=== PATIENT | female | born 1985 | race Two or more races ===

== ENCOUNTER 2024-07-18 00:55 | Inpatient (IN) | payer MEDICAID, OTHER ==
[~2024-07-18] VITALS: Ht 152.4 cm; Wt 81.0 kg
[2024-07-18] VITALS (14 sets, daily range): BP systolic 91–119; BP diastolic 57–72; PULSE 84–96; RESP 16–18; TEMP 97.6–98.6; O2SAT 93–100
--- NOTE | 2024-07-18 01:27 | ED.PDOC ---
History of Present Illness HPI Comments 38-year-old female with PMHx Asthma presents with a chief complaint of fever, headache, body aches, throat pain, cough, shortness of breath anxiety, and ear pain x 3 days. Patient states that she called EMS due to feeling progressively worse over the past x 3 days. Patient reports that her 2 children at home have similar symptoms. Patient mentions that she has attempted to relieve her symptoms with her inhaler, but has not had any relief. Patient was tachycardic per EMS in the 130s. No other symptoms or modifying factors present at this time. Chief Complaint: Shortness of Breath Time Seen by MD: 01:15 Reviewed Notes: Medications, Allergies Allergies: Coded Allergies: NO KNOWN ALLERGIES (Unverified , 07/18/24) Home Meds Active Scripts Oseltamivir Phosphate (Tamiflu) 75 Mg Cap, 1 CAP PO BID, #9 CAP Prov:MJ LINO MD 07/18/24 Information Source: Patient, Emergency Med Personnel Mode of Arrival: EMS Severity: Moderate Timing: Days Duration: Since onset Prehospital treatment: None Vital Signs Vital Signs Date Time Temp Pulse Resp B/P (MAP) Pulse Ox O2 Delivery O2 Flow Rate FiO2 07/18/24 04:50 94 07/18/24 02:25 20 96 Room Air* 0 21 07/18/24 02:22 97.5 136/56 (82) 97.5 Physical Exam General: Awake, alert and oriented. No acute distress. Skin: Skin in warm, dry and intact. Appropriate color for ethnicity. Nailbeds pink with no cyanosis. HEENT: The head is normocephalic and atraumatic. Conjunctivae are clear without exudates or hemorrhage. Sclera is non-icteric. EOM are intact. No signs of nystagmus. Eyelids are normal in appearance without swelling or lesions. Oral mucosa is pink and moist Neck: The neck is supple with normal range of motion. No JVD. Cardiac: Heart rate and rhythm are normal. No murmurs, gallops, or rubs are auscultated. Respiratory: No signs of respiratory distress. Positive wheezes bilaterally. Abdominal: Abdomen is soft, non-tender without distention. Bowel sounds are present and normoactive in all four quadrants. Extremities: Upper and lower extremities are atraumatic in appearance without deformity or edema. Neurological: The patient is awake, alert and oriented to person, place, and time with normal speech. Speech is clear. There is no facial asymmetry. Psychiatric: Appropriate mood and affect. Good judgement and insight. No visual or auditory hallucinations. Review of Systems: As stated in HPI Past Medical History PAST MEDICAL HISTORY: Asthma Surgical History: Denies all surgeries KEEPER HELPER History: Denies all KEEPER HELPER Hx Family History Family History: Reviewed,noncontributory to illness Social History Smoker: Non-Smoker Alcohol: Denies ETOH Use Drugs: Denies Drug Use Lives In: Home Was a procedure done? Was a procedure done?: No EKG EKG : Pulse Rate (adult): 118 [place]: Normal Cardiac Rhythm: ST Block: None Hypertrophy: LAE ST: Normal Comments Borderline repolarization abnormality No STEMI Differential Dx Considerations may include: Differential diagnoses considered includebut arenot limited to acute Bronchitis, Asthma, Pneumothorax, PE, CHF, Pulmonary HTN, Anemia, CO Poisoning, dehydration, viral syndrome, acute coronary syndrome, Pneumonia, ACS, Anxiety, other X-Ray, Labs, Meds, VS Vital Signs Date Time Temp Pulse Resp B/P (MAP) Pulse Ox O2 Delivery O2 Flow Rate FiO2 07/18/24 04:50 94 07/18/24 03:38 118 07/18/24 02:25 20 96 Room Air* 0 21 07/18/24 02:22 97.5 108 20 136/56 (82) 96 97.5 07/18/24 02:16 18 95 Room Air* 0 21 07/18/24 02:16 95 Room Air* 0 21 07/18/24 01:13 118 07/18/24 00:55 98.4 124 18 114/72 (86) 94 Lab Test 07/18/24 02:33 07/18/24 01:55 Range/Units Influenza Type A Antigen Positive Negative Influenza Type B Antigen Negative Negative SARS-CoV-2 Antigen (Rapid) Negative NEGATIVE White Blood Count 4.5 4.4-10.8 10^3/uL Red Blood Count 4.54 4.0-5.20 10^6/uL Hemoglobin 12.9 12.2-16.2 g/dL Hematocrit 38.7 36.0-46.0 % Mean Corpuscular Volume 85.3 80.0-100.0 fL Mean Corpuscular Hemoglobin 28.5 28.0-32.0 pg Mean Corpuscular Hemoglobin Concent 33.5 32.0-36.0 g/dL Red Cell Distribution Width 15.3 H 11.8-14.3 % Platelet Count 243 140-450 10^3/uL Mean Platelet Volume 8.4 6.9-10.8 fL Neutrophils (%) (Auto) 83.7 H 37.0-80.0 % Lymphocytes (%) (Auto) 10.2 10.0-50.0 % Monocytes (%) (Auto) 5.5 0.0-12.0 % Eosinophils (%) (Auto) 0.1 0.0-7.0 % Basophils (%) (Auto) 0.5 0.0-2.0 % Neutrophils # (Auto) 3.8 1.6-8.6 10 ^3/uL Lymphocytes # (Auto) 0.5 0.4-5.4 10 ^3/uL Monocytes # (Auto) 0.2 0-1.3 10 ^3/uL Eosinophils # (Auto) 0 0-0.8 10 ^3/uL Basophils # (Auto) 0 0-0.2 10 ^3/uL Nucleated Red Blood Cells 0.1 % Sodium Level 134 L 136-145 mmol/L Potassium Level 3.4 L 3.5-5.1 mmol/L Chloride Level 99 98-107 mmol/L Carbon Dioxide Level 25 20-31 mmol/L Anion Gap 10 5-15 Blood Urea Nitrogen 7 L 9-23 mg/dL Creatinine 0.52 L 0.550-1.02 mg/dL Glomerular Filtration Rate Calc 123 >90 mL/min BUN/Creatinine Ratio 13.5 10.0-20.0 Serum Glucose 104 74-106 mg/dL Calcium Level 9.3 8.7-10.4 mg/dL Total Bilirubin 0.2 0.2-1.0 mg/dL Aspartate Amino Transferase (AST) 15 13-40 U/L Alanine Aminotransferase (ALT) 18 7-40 U/L Alkaline Phosphatase 77 46-116 U/L Troponin I High Sensitivity < 3 L </=34 ng/L Total Protein 6.5 5.7-8.2 g/dL Albumin 4.1 3.2-4.8 g/dL Lipase 39 12-53 U/L Beta HCG, Quantitative > 587315.0 H 1.5-4.2 mIU/mL Current Medications Medications (Trade) Dose Ordered Sig/Cece Route Start Time Stop Time Status Last Admin Albuterol (Ventolin Medneb) 2.5 mg ONCE ONCE NEB 07/18/24 01:30 07/18/24 01:31 DC 07/18/24 02:05 Ipratropium Beals (Atrovent Medneb) 0.5 mg ONCE ONCE NEB 07/18/24 01:30 07/18/24 01:31 DC 07/18/24 02:05 Dexamethasone Sodium Phosphate (Decadron Injection) 10 mg ONCE ONCE IM 07/18/24 01:30 07/18/24 01:31 DC 07/18/24 02:43 Sodium Chloride 1,000 ml @ 1,000 mls/hr Q1H ONCE IV 07/18/24 01:45 07/18/24 02:44 DC 07/18/24 03:28 Acetaminophen (Tylenol Tablet) 650 mg ONCE ONCE PO 07/18/24 02:45 07/18/24 02:46 DC 07/18/24 02:43 Oseltamivir Phosphate (Tamiflu 75MG Capsule) 75 mg ONCE ONCE PO 07/18/24 04:30 07/18/24 04:31 DC 07/18/24 04:51 Potassium Bicarbonate (Klor-Con/Ef) 50 meq ONCE ONCE PO 07/18/24 05:15 07/18/24 05:16 DC 07/18/24 05:20 Time of 1ST Reevaluation: 01:45 Reevaluation 1ST: Unchanged Patient Education/Counseling: Diagnosis, Treatment, Prognosis Family Education/Counseling: No Family Present Departure 1 Departure Time of Disposition: 05:50 Impression: Primary Impression: Influenza A Additional Impressions: Asthma Disposition: 01 HOME / SELF CARE / HOMELESS Condition: Stable Additional Instructions: ED DISCHARGE INSTRUCTIONS Instructions: Please read all instructions provided in this packet carefully. Although you have been discharged from the Emergency Department, this does not mean that you have a "clean bill of health". []No definitive diagnosis for your symptoms has been made today. It is possible that you are in the process of developing a serious illness. This is why you must return to the ED without fail if any new or worsening symptoms (especially if your symptoms include chest pain, trouble breathing, abdominal pain, fever, headache, confusion, trouble seeing, or trouble walking) It is also very important that you see a primary care doctor within the next 3-5 days to follow up. If you are unable to get an appointment, return to the ED for re-evaluation. Early treatment with antiviral medication for flu If you're and have been diagnosed with flu, we may recommend early treatment with antiviral medication (Tamiflu or Relenza) as soon as you start to feel sick or have been exposed to the flu. This medication may make flu symptoms milder, help you feel better faster, and prevent flu-related complications. Tamiflu and Relenza are safe to use during . Dont ignore these symptoms. Been exposed to the flu in the past 4 days. Flu symptoms, such as fever, cough, sore throat, body aches, headaches, chills, or fatigue. Care for your symptoms These recommendations will help you care for your cold, flu, and some COVID-19 symptoms. A fever is the bodys normal response to an infection. A fever is a temperature of 100.4F or higher. When youre , treat your fever early with acetaminophen (Tylenol) to lower your temperature and ease discomfort. Do Keep your room cool and dress lightly. Get plenty of rest. Drink enough fluids. Don't Don't become dehydrated. Clear, colorless urine (and having to urinate frequently) are signs that you're drinking enough. Don't smoke or vape. Avoid secondhand smoke. If you smoke or vape, try to cut back as it can take longer to recover Medication Take acetaminophen (Tylenol) to lower your temperature and relieve discomfort. Follow dosing instructions listed on the product. Don't take aspirin or ibuprofen (Advil, Motrin) unless advised by your doctor. A runny or stuffy nose can last 2 weeks or more. Yellow or green mucus and sinus pain usually doesnt mean you need antibiotics. Do Rinse sinuses with a saltwater (saline) solution. Buy saline nose drops, sprays, or kits. Breathe moist air from a steamy shower, hot bath, or sink filled with warm water. Apply moist heat (warm washcloth or gel pack) to your face for a few minutes, 3 to 4 times a day. Sip warm broth, decaffeinated tea, or water to relieve congestion. Get plenty of rest. Drink enough fluids. Don't Don't become dehydrated. Clear, colorless urine (and having to urinate frequently) are signs that you're drinking enough. Don't smoke or vape. Avoid secondhand smoke. If you smoke or vape, try to cut back as it can take longer to recover. A cough can last 2 weeks or more. It can get worse at night. Coughing up yellow or green mucus usually doesnt mean you need antibiotics. Do Use cough drops, lozenges, hard candy, or ice chips to soothe irritation and dry, tickling coughs. Breathe steamy air from a warm bath or shower, or use a humidifier (no medication added) to add moisture to the air. Drink warm fluids such as water with lemon or decaffeinated tea. Get plenty of rest. With a sore throat, you may have mild to moderate pain when swallowing and dryness, which usually improves within 3 to 4 days. Do Gargle with warm salt water twice a day. Mix 1 teaspoon of salt in 1 cup of warm water. Suck on throat lozenges, hard candy, or ice chips. Drink warm fluids such as water with lemon or decaffeinated tea. Get plenty of rest. Drink enough fluids. Vomiting is unpleasant and can make you tired. Fortunately, it usually stops within 24 hours and is unlikely to harm your baby. Its especially important to replace lost fluids to prevent dehydration. Do Drink clear liquids like diluted fruit juice, broth, a sports drink, or weak decaffeinated tea an hour after vomiting. Start with a few sips every 20 minutes in the first hour. Eat toast, bananas, and crackers after your vomiting has stopped for several hours and you feel better. Return to a normal diet when youre able to. Get plenty of rest. e-Prescriptions Oseltamivir Phosphate (Tamiflu) 75 Mg Cap 1 CAP PO BID, #9 CAP Prov: MJ LINO MD 07/18/24 Comments 38-year-old female with URI symptoms, sick contacts at home, influenza A positive. She has no respiratory distress, she is not hypoxic. We will treat with Tamiflu as recommended by the ACOG. Discharge pending OB ultrasound. Extensive evaluation was performed in attempt to identify or rule out: (See differential diagnosis section) The following tests were ordered, and results were reviewed by me: (See diagnostic results section) The following test were independently interpreted by me: Chest x-ray-no acute disease, EKG I reviewed and agreed with the following test results read by other providers: Chest x-ray I reviewed the following notes from the pt's past medical encounters: (None available at this time) Additional information was gathered from interviewing the following independent historians: N/A Discussion of management or test interpretation with external physician/other qualified health pulmonary care nurse: N/A Addressed one or more chronic illnesses with severe exacerbation, progression, or side effects of treatment: Asthma, , influenza a Decision regarding hospitalization or escalation of hospital level of care: Risks and benefits of admission for further treatment of patient's condition was considered however due to patient's stable condition patient will be discharged to follow up closely or return to care for worsening of condition or inability to follow up. Critical Care Note Critical Care Time?: No Stability Stability form required: No I personally scribed for MJ LINO MD ([email or web address]) on 07/18/24 at 01:27. Electronically submitted by Eleazar Ohara ([email or web address]). I personally scribed for MJ LINO MD ([email or web address]) on 07/18/24 at 03:38. Electronically submitted by Eleazar Ohara ([email or web address]). MJ LINO MD Jul 18, 2024 01:27
[2024-07-18] MEDS: ALBUTEROL SULF 2.5 MG/0.5ML(0.5%) NEB SOLN NEB ONE (02:05)
[2024-07-18] MEDS: IPRATROPIUM BROM 0.5 MG/2.5ML INH SOL NEB ONE (02:05)
[2024-07-18 02:13] LABS: Basophils # (auto) 0 10 ^3/uL (0-0.2); Basophils % (auto) 0.5 % (0.0-2.0); Eosinophils # (auto) 0 10 ^3/uL (0-0.8); Eosinophils % (auto) 0.1 % (0.0-7.0); Hematocrit 38.7 % (36.0-46.0); Hemoglobin 12.9 g/dL (12.2-16.2); Lymphocytes # (auto) 0.5 10 ^3/uL (0.4-5.4); Lymphocytes % (auto) 10.2 % (10.0-50.0); Mean Corpuscular Hemoglobin 28.5 pg (28.0-32.0); Mean Corpuscular Hgb Conc. 33.5 g/dL (32.0-36.0); Mean Corpuscular Volume 85.3 fL (80.0-100.0); Monocytes # (auto) 0.2 10 ^3/uL (0-1.3); Monocytes % (auto) 5.5 % (0.0-12.0); Neutrophils # (auto) 3.8 10 ^3/uL (1.6-8.6); Neutrophils % (auto) 83.7 % (37.0-80.0); Nucleated Red Blood Cells % 0.1 %; Platelet Count (auto) 243 10^3/uL (140-450); Red Blood Cells 4.54 10^6/uL (4.0-5.20); Red Cell Distribution Width 15.3 % (11.8-14.3); White Blood Cell 4.5 10^3/uL (4.4-10.8)
[2024-07-18 02:34] LABS: Alanine Aminotransferase 18 U/L (7-40); Albumin 4.1 g/dL (3.2-4.8); Alkaline Phosphatase 77 U/L (46-116); Anion Gap 10 (5-15); Aspartate Aminotransferase 15 U/L (13-40); BUN/Creatinine Ratio 13.5 (10.0-20.0); Calcium 9.3 mg/dL (8.7-10.4); Carbon Dioxide 25 mmol/L (20-31); Chloride 99 mmol/L (98-107); Glucose 104 mg/dL (74-106); Lipase 39 U/L (12-53)
[2024-07-18 02:35] LABS: Bilirubin, Total 0.2 mg/dL (0.2-1.0); Total Protein 6.5 g/dL (5.7-8.2)
--- NOTE | 2024-07-18 02:37 | DVH ---
Examination: CXR1 CLINICAL INDICATION: Shortness of breath, cough, fever. COMPARISON: None. TECHNIQUE: Frontal radiograph of the chest was obtained. FINDINGS: Patient is in slight rotation. Lungs are clear and well expanded with no pulmonary infiltrate or pleural effusion. There is no pneumothorax. The cardiomediastinal silhouette is within normal limits. No acute osseous abnormality is seen. IMPRESSION: No acute cardiopulmonary disease is seen. Electronically Signed 07/18/2024 02:36 Niall Mann
[2024-07-18 02:41] LABS: Blood Urea Nitrogen 7 mg/dL (9-23); Potassium 3.4 mmol/L (3.5-5.1); Sodium 134 mmol/L (136-145)
[2024-07-18] MEDS: ACETAMINOPHEN 325 MG TAB PO ONE (02:43)
[2024-07-18] MEDS: DexAMETHasone SOD PHOS 10MG/1ML VIAL INJ IM ONE (02:43)
[2024-07-18] MEDS: SODIUM CHLORIDE 0.9% 1,000 ML IV ONE (03:28)
[2024-07-18 03:36] LABS: COVID19 ANTIGEN SOFIA FIA NEGATIVE (NEGATIVE)
[2024-07-18 03:37] LABS: Rapid Influenza B Negative (Negative)
[2024-07-18 03:38] LABS: Rapid Influenza A Positive (Negative)
[2024-07-18] MEDS: OSELTAMIVIR 75 MG CAP PO ONE (04:51)
[2024-07-18] MEDS: POTASSIUM EFFERVESENT TAB 25 MEQ PO ONE (05:20)
[2024-07-18] MEDS ORDERED: OSEL75CA5 PO (05:51)
--- NOTE | 2024-07-18 06:13 | ECG ---
[facility] Test Date: 2024-07-18 Test Time: 01:13:13 Pat Name: SKY SHERIDAN Department: ER Room: 0215 Gender: F [employer] Mechanic: RAFFI : 1985 Requested By: MJ LINO Order Number: [id number] Reading MD: Denver Mahan Measurements Intervals [place] Rate: 118 P: 82 CO: 115 QRS: 87 QRSD: 81 T: -70 QT: 272 QTc: 382 Interpretive Statements Sinus tachycardia Probable left atrial enlargement Borderline repolarization abnormality Electronically Signed On 07-19-2024 12:48:22 PST by Denver Mahan Please click the below link to view image of tracing.
--- NOTE | 2024-07-18 07:13 | DVH ---
CLINICAL HISTORY: COMPARISON: None TECHNIQUE: Transabdominal grayscale sonographic imaging of the uterus and ovaries was performed, assi sted by color Doppler technique. Sonographic evaluation of early intrauterine was marisa perez. FINDINGS: The uterus measures 9.2 x 9.0 x 8.1 cm. There is an intrauterine gestational sac with fetus identified. [place]-rump length measures 6.75 cm, corresponding to an estimated gestational age of 13 weeks 0 days. heart rate measures 184 beats per minute. There are small hypoechoic to anechoic areas adjacent to the gestational sac, measuring up to 0.8 x 0.5 x 0.6 cm, possibly subchorionic hem orrhage. Placenta visualized anteriorly. Neither ovary is able to be visualized. IMPRESSION: 1. Single living intrauterine with estimated gestational age of 13 weeks 0 days based on 1s t trimester ultrasound crown-rump length. 2. Possible small areas of subchorionic hemorrhage 3. Neither ovary is visualized.
[2024-07-18] MEDS ORDERED: MAALOX PLUS or MAALOX 30 ML PO PRN (08:15)
[2024-07-18] MEDS ORDERED: DOCUSATE SOD 100 MG CAP PO PRN (08:15)
[2024-07-18] MEDS ORDERED: ONDANSETRON HCL 4 MG/2 ML VIAL IV PRN (08:15)
[2024-07-18] MEDS ORDERED: LORazepam 0.5 MG TAB PO PRN (08:15)
[2024-07-18] MEDS ORDERED: TEMAZEPAM 15 MG CAP PO PRN (08:15)
[2024-07-18] MEDS ORDERED: MORPHINE SULFATE INJ 2 MG/ml SYRG IV PRN (08:15)
--- NOTE | 2024-07-18 08:22 | DVHHP2 ---
History of Present Illness Reason for Visit: Shortness of breaths History of Present Illness 38-year-old woman with a past medical history of asthma comes into the ED for evaluation of fevers chills cough cold sore throat and body pain patient has not been feeling well for the past 3 days and continues to feel like it breathing is more in progressively more difficult patient was evaluated in the ED stating that she has 2 younger children at home who had very similar symptoms and she came in for evaluation due to the fact that her asthma was exacerbated and her shortness of breath has worsened on initial examination patient had vital signs of show tachycardia plus tachypnea patient was recommended at that time for inpatient management as she was not sustainable at maintaining these vitals and saturations while at home patient will be admitted for further acute management and care Review of Systems Constitutional: Yes: Weakness; No: Fever, Chills, Sweats, Malaise, Other Eyes: No: Pain, Vision change, Conjunctivae inflammation, Eyelid inflammation, Other, Redness ENT: No: Ear pain, Ear discharge, Nose pain, Nose discharge, Nose congestion, Mouth pain, Mouth swelling, Throat pain, Throat swelling, Other Respiratory: Cough, Shortness of breath; No: Dry, SOB with excertion, Wheezing, Hemoptysis, Pleuritic Pain, Sputum, Wheezing, Other Cardiovascular: No: Chest Pain, Palpitations, Orthopnea, Paroxysmal Noc. Dyspnea, Edema, Lt Headedness, Other Gastrointestinal: No: Nausea, Vomiting, Abdominal Pain, Diarrhea, Constipation, Melena, Hematochezia, Other Genitourinary: No Dysuria, No Frequency, No Incontinence, No Hematuria, No Ret ention, No Other Musculoskeletal: No: other, neck pain, shoulder pain, arm pain, back pain, hand pain, leg pain, foot pain Skin: No: Rash, Lesions, Jaundice, Bruising, Other Neurological: No: Weakness, Numbness, Incoordination, Change in speech, Confusion, Seizures, Other Allergies: Coded Allergies: NO KNOWN ALLERGIES (Unverified , 07/18/24) Exam Vital Signs Vital Signs Date Time Temp Pulse Resp B/P (MAP) Pulse Ox O2 Delivery O2 Flow Rate FiO2 07/18/24 04:50 94 07/18/24 02:25 20 96 Room Air* 0 21 07/18/24 02:22 97.5 136/56 (82) 97.5 General Appearance: Alert, Oriented X3, Cooperative, mild distress HEENT: Atraumatic, PERRLA Respiratory: Clear to auscultation, Normal air movement Cardiovascular: Regular rate, Normal S1, Normal S2 Abdominal: Normal bowel sounds Extremities: No clubbing, No cyanosis Skin: No rashes, No breakdown Neuro: Normal gait, Normal speech Psych/Mental Status: Mood NL Labs/Xrays Labs Test 07/18/24 02:33 07/18/24 01:55 Range/Units Influenza Type A Antigen Positive Negative Influenza Type B Antigen Negative Negative SARS-CoV-2 Antigen (Rapid) Negative NEGATIVE White Blood Count 4.5 4.4-10.8 10^3/uL Red Blood Count 4.54 4.0-5.20 10^6/uL Hemoglobin 12.9 12.2-16.2 g/dL Hematocrit 38.7 36.0-46.0 % Mean Corpuscular Volume 85.3 80.0-100.0 fL Mean Corpuscular Hemoglobin 28.5 28.0-32.0 pg Mean Corpuscular Hemoglobin Concent 33.5 32.0-36.0 g/dL Red Cell Distribution Width 15.3 H 11.8-14.3 % Platelet Count 243 140-450 10^3/uL Mean Platelet Volume 8.4 6.9-10.8 fL Neutrophils (%) (Auto) 83.7 H 37.0-80.0 % Lymphocytes (%) (Auto) 10.2 10.0-50.0 % Monocytes (%) (Auto) 5.5 0.0-12.0 % Eosinophils (%) (Auto) 0.1 0.0-7.0 % Basophils (%) (Auto) 0.5 0.0-2.0 % Neutrophils # (Auto) 3.8 1.6-8.6 10 ^3/uL Lymphocytes # (Auto) 0.5 0.4-5.4 10 ^3/uL Monocytes # (Auto) 0.2 0-1.3 10 ^3/uL Eosinophils # (Auto) 0 0-0.8 10 ^3/uL Basophils # (Auto) 0 0-0.2 10 ^3/uL Nucleated Red Blood Cells 0.1 % Sodium Level 134 L 136-145 mmol/L Potassium Level 3.4 L 3.5-5.1 mmol/L Chloride Level 99 98-107 mmol/L Carbon Dioxide Level 25 20-31 mmol/L Anion Gap 10 5-15 Blood Urea Nitrogen 7 L 9-23 mg/dL Creatinine 0.52 L 0.550-1.02 mg/dL Glomerular Filtration Rate Calc 123 >90 mL/min BUN/Creatinine Ratio 13.5 10.0-20.0 Serum Glucose 104 74-106 mg/dL Calcium Level 9.3 8.7-10.4 mg/dL Total Bilirubin 0.2 0.2-1.0 mg/dL Aspartate Amino Transferase (AST) 15 13-40 U/L Alanine Aminotransferase (ALT) 18 7-40 U/L Alkaline Phosphatase 77 46-116 U/L Troponin I High Sensitivity < 3 L </=34 ng/L Total Protein 6.5 5.7-8.2 g/dL Albumin 4.1 3.2-4.8 g/dL Lipase 39 12-53 U/L Beta HCG, Quantitative > 002919.0 H 1.5-4.2 mIU/mL Assessment/Plan Assessment/Plan Admit to [facility] Pneumonias secondary to a viral infection influenza type a Patient exacerbation of acute asthma P.o. antibiotics P.r.n. breathing treatments We will continue with home medications as required We will monitor blood pressure We will also add IV hydration for patient's signs of dehydration calculated to be at a 2 L deficit we will [address] patient on fluid management Plan discussed with: Patient My Orders Orders - MICHAEL CRESPO MD Procedure Category Date Status Time Albuterol Medneb PHA 07/18/24 Logged (Ventolin Medneb) 08:15 Ipratropium Medneb PHA 07/18/24 Logged (Atrovent Medneb) 08:15 Med Neb Initial RT 07/18/24 Logged Treatment 08:07 Oseltamivir 75mg PHA 07/18/24 Logged Capsule (Tamiflu 75mg 08:15 Dexamethasone Tablet PHA 07/18/24 Logged (Decadron Tablet) 10:00 Admit ADMIT 07/18/24 Transmitted 08:07 Code Status CODE 07/18/24 Transmitted 08:07 Vital Signs MATHIEU 07/18/24 In Process 08:07 Review Orders With MATHIEU 07/18/24 In Process Adm 08:07 Regular Diet DIET 07/18/24 Transmitted Breakfast Sodium Chloride 0.9% PHA 07/18/24 Logged 08:15 Lorazepam Tablet PHA 07/18/24 Logged (Ativan Tablet) 08:15 Alum & Mag PHA 07/18/24 Logged Hydrox-Simethicone 08:15 Docusate Sodium PHA 07/18/24 Logged Capsule (Colace 08:15 Acetaminophen Tablet PHA 07/18/24 Logged (Tylenol Tablet) 08:15 Temazepam (Restoril) PHA 07/18/24 Logged 08:15 Notify Md Of Changes MATHIEU 07/18/24 In Process From Base 08:07 Advance Directive MATHIEU 07/18/24 In Process 08:07 Basic Metabolic Panel LAB 07/19/24 Verified 04:00 Complete Blood Count LAB 07/19/24 Verified 04:00 Patient Condition ORDERS 07/18/24 Transmitted 08:07 Allergies MATHIEU 07/18/24 In Process 08:07 Hydrocodone-Acet PHA 07/18/24 Logged 5/325mg Tab ([place] 08:15 Ondansetron Hcl PHA 07/18/24 Logged (Zofran) 08:15 Morphine Sulfate PHA 07/18/24 Logged Injection 08:15 Notify Md Of Changes [facility] 07/18/24 In Process From Base 08:07 Oxygen By Nasal RT 07/18/24 Transmitted Cannula 08:07 Problem List: (1) Influenza A (2) Asthma (3) Date of Service: Jul 18, 2024 Billing Provider: MICHAEL CRESPO MD Common Visit Codes: 27633-AXANCAL INP/OBS CARE (HIGH) MICHAEL CRESPO MD Jul 18, 2024 08:22
[2024-07-18] MEDS: SODIUM CHLORIDE 0.9% 1,000 ML IV SCH (08:53)
[2024-07-18] MEDS: DexAMETHasone 4 MG TAB PO SCH (08:58)
[2024-07-18] MEDS: ALBUTEROL SULF 2.5 MG/0.5ML(0.5%) NEB SOLN NEB PRN (09:26)
[2024-07-18] MEDS: IPRATROPIUM BROM 0.5 MG/2.5ML INH SOL NEB PRN (09:26)
--- NOTE | 2024-07-18 11:21 | DVHPN2 ---
Subjective Patient reports some improvement with her symptoms. Still reports having severe headache Reviewed: Care Plan, H&P, Labs Changes from previous H/P or p: No Changes Eyes: No Pain, No Vision change, No Conjunctivae inflammation, No Eyelid inflammation, No Other, No Redness ENT: No Ear pain, No Ear discharge, No Nose pain, No Nose discharge, No Nose congestion, No Mouth pain, No Mouth swelling, No Throat pain, No Throat swelling, No Other Cardiovascular: No Chest Pain, No Palpitations, No Orthopnea, No Paroxysmal Noc. Dyspnea, No Edema, No Lt Headedness, No Other Respiratory: Cough; No Dry; Shortness of breath; No SOB with excertion, No Wheezing, No Hemoptysis, No Pleuritic Pain, No Sputum, No Other Gastrointestinal: No Nausea, No Vomiting, No Abdominal Pain, No Diarrhea, No Constipation, No Melena, No Hematochezia, No Other Genitourinary: No Dysuria, No Frequency, No Incontinence, No Hematuria, No Retention, No Other Musculoskeletal: No other, No neck pain, No shoulder pain, No arm pain, No back pain, No hand pain, No leg pain, No foot pain Skin: No Rash, No Lesions, No Jaundice, No Bruising, No Other Objective Vitals Vital Signs Date Time Temp Pulse Resp B/P (MAP) Pulse Ox O2 Delivery O2 Flow Rate FiO2 07/18/24 10:39 98.4 89 18 104/57 (73) 94 98.4 07/18/24 09:26 Room Air 0.0 07/18/24 09:26 21 Intake/Output Intake and Output 07/18/24 07:00 Intake Total 1000 ml Balance 1000 ml Intake IV Total 1000 ml General Appearance: Alert, Oriented X3, Cooperative, No acute distress HEENT: Atraumatic, PERRLA Cardiovascular: Normal S1, Normal S2 Abdomen: Normal bowel sounds, Soft, No tenderness Rectal: Normal inspection Musculoskeletal: Normal sensory function, Normal motor function Neuro: Normal gait, Normal speech Psych/Mental Status: Mental status NL Medications Current Medications Medications Dose Ordered Sig/Cece Route Start Time Stop Time Status Last Admin Dose Admin Albuterol 2.5 mg Q4HPRN PRN NEB 07/18/24 08:15 07/18/24 09:26 2.5 MG Ipratropium [place] 0.5 mg Q4HPRN PRN NEB 07/18/24 08:15 07/18/24 09:26 0.5 MG Oseltamivir Phosphate 75 mg BID PO 07/18/24 22:00 07/23/24 21:59 Dexamethasone 6 mg DAILY PO 07/18/24 10:00 07/18/24 08:58 6 MG Sodium Chloride 1,000 ml @ 60 mls/hr [id number] IV 07/18/24 08:15 Lorazepam 0.5 mg Q6HP PRN PO 07/18/24 08:15 Al Hydrox/Mg Hydrox/Simethicone 30 ml Q6HP PRN PO 07/18/24 08:15 Docusate Sodium 100 mg BIDPRN PRN PO 07/18/24 08:15 Acetaminophen 650 mg Q6HP PRN PO 07/18/24 08:15 Temazepam 15 mg QHSP PRN PO 07/18/24 08:15 Acetaminophen/ Hydrocodone Bitart 1 tab Q4HP PRN PO 07/18/24 08:15 Ondansetron HCl 4 mg Q4HP PRN IV 07/18/24 08:15 Morphine Sulfate 2 mg Q4HPRN PRN IV 07/18/24 08:15 Laboratory Results Laboratory Tests 07/18/24 01:55 Chemistry Test 07/18/24 01:55 Albumin 4.1 g/dL (3.2-4.8) Calcium Level 9.3 mg/dL (8.7-10.4) Total Protein 6.5 g/dL (5.7-8.2) Lipid panel Test 07/18/24 01:55 Lipase 39 U/L (12-53) LFT Test 07/18/24 01:55 Alanine Aminotransferase (ALT) 18 U/L (7-40) Alkaline Phosphatase 77 U/L (46-116) Aspartate Amino Transferase (AST) 15 U/L (13-40) Total Bilirubin 0.2 mg/dL (0.2-1.0) Labs and/or images reviewed: Labs reviewed by me, Image(s) reviewed by me Assessment/Plan Assessment/Plan Impression: -influenza A -? Bronchitis - -asthma exacerbation Plan: -start IV Rocephin -continue IV hydration -hold antiviral given -continue bronchodilators -DC once symptoms have improved Total time spent with patient discussing and formulating plan of care: 35 minutes. This medical document was created using an electronic medical record system with [employer] computerized dictation system. Although this document has been carefully reviewed, there may still be some phonetic and typographical errors. These areas are purely typographical due to imperfections of the software programs, and do not reflect any compromise in the patient's medical care. Plan discussed with: Patient, Other (RN) Date of Service: Jul 18, 2024 Billing Provider: ERIKA HANNA NP Common Visit Codes: [id number] INP/OBS CARE(HIGH) ERIKA HANNA NP Jul 18, 2024 11:21
[2024-07-18 12:16] LABS: Hepatitis B Surface Antigen Negative (Negative)
[2024-07-18 12:38] LABS: Hepatitis C Antibody Negative (Negative)
[2024-07-18] MEDS: cefTRIAXone 1GM/50ML D5W 50 ML IV SCH (14:27)
[2024-07-18] MEDS: HYDROcodone-ACET 5/325MG TAB PO PRN (14:36)
[2024-07-18] MEDS ORDERED: ALBUAER3 IN (15:55)
[2024-07-18] MEDS ORDERED: PHEN1LIQ97 PO (15:55)
[2024-07-18] MEDS: OSELTAMIVIR 75 MG CAP PO SCH (22:00)
[2024-07-18] MEDS: ACETAMINOPHEN 325 MG TAB PO PRN (23:36)
[2024-07-19] VITALS (12 sets, daily range): BP systolic 95–118; BP diastolic 47–70; PULSE 70–104; RESP 16–18; TEMP 97.7–98.4; O2SAT 92–100
[2024-07-19 06:15] LABS: Basophils # (auto) 0 10 ^3/uL (0-0.2); Basophils % (auto) 0.2 % (0.0-2.0); Eosinophils # (auto) 0 10 ^3/uL (0-0.8); Eosinophils % (auto) 0.1 % (0.0-7.0); Hematocrit 34.9 % (36.0-46.0); Hemoglobin 11.7 g/dL (12.2-16.2); Lymphocytes # (auto) 1.1 10 ^3/uL (0.4-5.4); Lymphocytes % (auto) 29.3 % (10.0-50.0); Mean Corpuscular Hemoglobin 28.5 pg (28.0-32.0); Mean Corpuscular Hgb Conc. 33.4 g/dL (32.0-36.0); Mean Corpuscular Volume 85.5 fL (80.0-100.0); Monocytes # (auto) 0.5 10 ^3/uL (0-1.3); Neutrophils # (auto) 2.1 10 ^3/uL (1.6-8.6); Neutrophils % (auto) 56.4 % (37.0-80.0); Nucleated Red Blood Cells % 0.2 %; Platelet Count (auto) 249 10^3/uL (140-450); Red Blood Cells 4.09 10^6/uL (4.0-5.20); Red Cell Distribution Width 15.4 % (11.8-14.3); White Blood Cell 3.8 10^3/uL (4.4-10.8)
[2024-07-19 06:23] LABS: Potassium 3.6 mmol/L (3.5-5.1); Sodium 141 mmol/L (136-145)
[2024-07-19 06:24] LABS: Anion Gap 10 (5-15); Carbon Dioxide 22 mmol/L (20-31)
[2024-07-19 06:29] LABS: BUN/Creatinine Ratio 14.3 (10.0-20.0)
[2024-07-19 06:30] LABS: Glucose 90 mg/dL (74-106)
[2024-07-19 06:39] LABS: Blood Urea Nitrogen 6 mg/dL (9-23); Chloride 109 mmol/L (98-107)
--- NOTE | 2024-07-19 15:30 | DVHPN2 ---
Assessment/Plan Assessment/Plan Progress note Subjective 38-year-old female, admitted for flu a pneumonia. Patient is seen by me today during rounds No oxygen requirements, breathing comfortably on room air, slight dyspnea on effort Objective Physical exam Alert, oriented x3 PERRLA No JVD Rhonchi, cleared out by coughing S1-S2 regular rate and rhythm no murmur Abdomen soft nontender, no organomegaly Moving all four extremities No lower extremity edema Assessment and plan Impression: -influenza A -? Bronchitis - -asthma exacerbation Plan: -start IV Rocephin -continue IV hydration -hold antiviral given -continue bronchodilators -DC once symptoms have improved Replete electrolytes Diet regular DVT prophylaxis ambulatory Plan discussed with: Patient Date of Service: Jul 19, 2024 Billing Provider: LYNDA RANDLE MD Common Visit Codes: [id number] INP/OBS CARE(HIGH) LYNDA RANDLE MD Jul 19, 2024 15:30
[2024-07-20] VITALS (7 sets, daily range): BP systolic 94–139; BP diastolic 59–96; PULSE 87–98; RESP 16–18; TEMP 97.8–98.9; O2SAT 92–98
[2024-07-20] MEDS ORDERED: ALBU108A5 IN (08:22)
[2024-07-20] MEDS ORDERED: AZIT-185 PO (08:22)
--- NOTE | 2024-07-20 08:24 | DVHDS2 ---
Discharge Summary Date of Admission Jul 18, 2024 at 08:07 Date of Discharge: Jul 20, 2024 Labs/Diagnostic Data: Laboratory Results Test 07/19/24 05:33 07/18/24 12:12 07/18/24 02:33 07/18/24 01:55 White Blood Count 3.8 10^3/uL (4.4-10.8) Red Blood Count 4.09 10^6/uL (4.0-5.20) Hemoglobin 11.7 g/dL (12.2-16.2) Hematocrit 34.9 % (36.0-46.0) Mean Corpuscular Volume 85.5 fL (80.0-100.0) Mean Corpuscular Hemoglobin 28.5 pg (28.0-32.0) Mean Corpuscular Hemoglobin Concent 33.4 g/dL (32.0-36.0) Red Cell Distribution Width 15.4 % (11.8-14.3) Platelet Count 249 10^3/uL (140-450) Mean Platelet Volume 8.8 fL (6.9-10.8) Neutrophils (%) (Auto) 56.4 % (37.0-80.0) Lymphocytes (%) (Auto) 29.3 % (10.0-50.0) Monocytes (%) (Auto) 14.0 % (0.0-12.0) Eosinophils (%) (Auto) 0.1 % (0.0-7.0) Basophils (%) (Auto) 0.2 % (0.0-2.0) Neutrophils # (Auto) 2.1 10 ^3/uL (1.6-8.6) Lymphocytes # (Auto) 1.1 10 ^3/uL (0.4-5.4) Monocytes # (Auto) 0.5 10 ^3/uL (0-1.3) Eosinophils # (Auto) 0 10 ^3/uL (0-0.8) Basophils # (Auto) 0 10 ^3/uL (0-0.2) Nucleated Red Blood Cells 0.2 % Sodium Level 141 mmol/L (136-145) Potassium Level 3.6 mmol/L (3.5-5.1) Chloride Level 109 mmol/L (98-107) Carbon Dioxide Level 22 mmol/L (20-31) Anion Gap 10 (5-15) Blood Urea Nitrogen 6 mg/dL (9-23) Creatinine 0.42 mg/dL (0.550-1.02) Glomerular Filtration Rate Calc 130 mL/min (>90) BUN/Creatinine Ratio 14.3 (10.0-20.0) Serum Glucose 90 mg/dL (74-106) Calcium Level 9.0 mg/dL (8.7-10.4) Hepatitis B Surface Antigen Negative (Negative) Hepatitis C Antibody Negative (Negative) Influenza Type A Antigen Positive (Negative) Influenza Type B Antigen Negative (Negative) SARS-CoV-2 Antigen (Rapid) Negative (NEGATIVE) Total Bilirubin 0.2 mg/dL (0.2-1.0) Aspartate Amino Transferase (AST) 15 U/L (13-40) Alanine Aminotransferase (ALT) 18 U/L (7-40) Alkaline Phosphatase 77 U/L (46-116) Troponin I High Sensitivity < 3 ng/L (</=34) Total Protein 6.5 g/dL (5.7-8.2) Albumin 4.1 g/dL (3.2-4.8) Lipase 39 U/L (12-53) Beta HCG, Quantitative > 532159.0 mIU/mL Other Laboratory Tests 07/19/24 05:33 Brief Hx & Hospital Course: 38 F admitted for asthma exacerbation found to have flu A, after breathing treatment patient improves, no more o2 requirements, stable to discharge home. tamiflu and prednisone deferred as pt is Condition at Discharge: Good Final Diagnosis/Problems List acute respiratory failure flu A PNA Discharge Disposition: Home Discharge Instruct/Medications Diet: Regular Activity: No Restrictions, As Tolerated Follow Up/Referral: resume care PCP Medications: azithromycin to complete 5 days 31 Discharge Statement: "Patient was advised to return to the ER or call 911 if any headaches, dizziness, shortness of breath, chest pain, abdominal pain, bleeding, fevers, or worsening of medical condition. Patient was counseled about treatment plan, medications, possible side effects, patientverbalized understanding. All questions were answered to the best of my ability. This discharge took greater then 30 minutes in planning, reviewing documentation, counseling the patient, and discussing with other team members." ASSESSMENT ASSESSMENT Assessment acute respiratory failure flu A PNA asthma exacerbation bronchitis Date of Service: Jul 20, 2024 Billing Provider: LYNDA RANDLE MD Common Visit Codes: [id number]/[id number] DISCH DAY >30min LYNDA RANDLE MD Jul 20, 2024 08:24
== END 2024-07-20 12:22 | disposition home or self-care (01) | DRG 566 ==
LOC: EDBD 00:55 → ER 00:55 → OVERFLOW 08:07 → CENTRAL 15:45
PROVIDERS: ADMIT Hospitalist; ATTEND Student in an Organized Health Care Education/Training Program
DX: O99.511 Diseases of the respiratory system complicating pregnancy, first trimester (principal); J96.00 Acute respiratory failure, unspecified whether with hypoxia or hypercapnia; J45.901 Unspecified asthma with (acute) exacerbation; J12.9 Viral pneumonia, unspecified; J10.01 Influenza due to other identified influenza virus with the same other identified influenza virus pneumonia; Z20.822 Contact with and (suspected) exposure to COVID-19; O99.341 Other mental disorders complicating pregnancy, first trimester; F41.9 Anxiety disorder, unspecified; Z79.899 Other long term (current) drug therapy; Z3A.13 13 weeks gestation of pregnancy
CPT/HCPCS: 36415; 71045; 76801; 80048; 80053; 83690; 84484; 84702; 85025; 86803; 87340; 87426; 87804; 93005; 94640; 96365; 96372; 96375; G0378; J1100

== ENCOUNTER 2025-01-08 05:47 | Inpatient (IN) | payer MEDICAID ==
[2025-01-08] VITALS (12 sets, daily range): BP systolic 119–133; BP diastolic 57–81; PULSE 66–87; RESP 16–18; TEMP 97.8–98.4; O2SAT 94–100
[~2025-01-08] VITALS: Ht 152.4 cm; Wt 63.5 kg
[~2025-01-08 05:47] MED LIST: ALBU108A5 IN; ALBUAER3 IN; AZIT-185 PO
[2025-01-08] MEDS ORDERED: DERMOPLAST 60ML BOTTLE TOP ONE (06:03)
[2025-01-08] MEDS ORDERED: WITCH HAZEL-GLYCERIN PAD TOP ONE (06:03)
[2025-01-08] MEDS ORDERED: PHISODERM TOP SOLN 240ML BTL TOP ONE (06:03)
--- NOTE | 2025-01-08 06:11 | DVHHP2 ---
OB CC & HPI Date Date of Admission: Jan 08, 2025 Patient Identification: : 9 Para: 8 now EDC: Jan 15, 2025 EGA: 39.0wks Chief Complaints: Reason for admission: other (BOA at home) History of Present Complaints 39yo female brought in my ambulance after birthing baby and placenta at home. Pt reports having cough and phelgm. Pt had no PNC except [facility] ED visit. NAT 01/15/25 based on 13wk sono. 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) Renal/: No pertinent Hx Endocrine: No pertinent Hx Dermatology: No pertinent Hx Past Surgical History: No pertinent Hx OB History OB History Care: None Ultrasounds: Other (sono at 13wks in ED) Obstetrical Complications: Other (unknown) Medical Complications: None Allergies: Coded Allergies: Pseudoephedrine (Verified Allergy, Intermediate, Itchiness and redness, 07/18/24) Home Meds Active Scripts Albuterol Sulfate (Albuterol Sulfate Hfa) 108 Mcg/Act Aer, 108 MCG IN Q4HP PRN for 30 Days, #30 AER Prov:LYNDA RANDLE MD 07/20/24 Azithromycin (ZITHROMAX TABLET) 250 Mg Tb, 250 MG PO DAILY for 5 Days, #5 TAB Prov:LYNDA RANDLE MD 07/20/24 Reported Medications Albuterol Sulfate (VENTOLIN MDI) 90 Mcg Ih, 90 MCG IN, INH 07/18/24 Family & Social History Family/Social History Past Family/Social History: denies Blood Type: Unknown Rubella: unknown RPR/VDRL: Unknown GBS Status: Unknown HBsAG: Unknown Review of Systems Constitutional: No symptom reported Ears, Nose, & Throat: No symptom reported Eyes: No symptom reported Pulmonary/Respiratory: No symptom reported Cardiovascular: No symptom reported Gastrointestinal: No symptom reported Genitourinary: No symptom reported Musculoskeletal: No symptom reported Skin: No symptom reported Psychiatric: No symptom reported Endocrine: No symptom reported Hemotologic/Lymphatic: No symptom reported OB Admission Exam Physical Exam Vitals: VSS, see chart HEENT: TMs Normal, Fontanelles Normal, Nasal Mucosa Normal, Eyes non-injected, Oropharynx Normal, PERRLA, Moist Membranes, EOMI Heart: Rhythm Normal Lungs: Clear Abdomen: Non tender Extremities: Normal Reflexes: Normal OB Plan Plan Admitting Diagnosis: BOA at home Other Plan: Assess lochia, fundus and perineum. Visit Coding OBGYN Date of Service: Jan 08, 2025 Billing Provider: AMINA BLANCO CNM STATION DETECTIVE Common Visit Codes: [id number] INP/OBS CARE (HIGH) AMINA BLANCO CNM Jan 08, 2025 06:11
--- NOTE | 2025-01-08 06:11 | LDN2 ---
Labor and Delivery Note Date 01/08/25 Age 39 9 Para 8 now AB 1 EDC 01/15/25 EGA 39.0wks Diagnosis BOA at home, brought in by ambulance after of baby and placenta Vaginal Delivery: VTX (per EMS) Vacuum Assisted: No (per EMS) Placenta: Spontaneous (per EMS) Sex: Female Weight 2775g Apgars 10/10 per EMS Nuchal Cord Transected: No Amniotic Fluid: Clear (per EMS) Anesthesia none Episiotomy: No Extension: No Repaired with n/a EBL QBL 50ml at the hospital Labs Laboratory Tests 07/18/24 12:12: Hepatitis B Surface Antigen Negative Complications UDS: +meth and +THC Conditions stable [employer] Juan Comments/Significant Med Jaz Pitocin IV bolus started. Placenta sent to pathology. Cervix/vagina inspected (intact) and perineum intact. Fundus at U, firm, midline, and light lochia. QBL 50ml. VSS. Count correct x2. Patient to care and baby to couplet care, both stable. Visit Coding OBGYN Date of Service: Jan 08, 2025 Billing Provider: AMINA BLANCO CNM FARMHAND Common Visit Codes: [id number] INP/OBS CARE(HIGH) AMINA BLANCO CNM Jan 08, 2025 06:11
[2025-01-08] MEDS ORDERED: PHISODERM TOP SOLN 240ML BTL TOP PRN (06:15)
[2025-01-08] MEDS ORDERED: LIDOCAINE 2%HCL (LOCAL ANESTH.) INJ 20ML MDV IJ PRN (06:15)
[2025-01-08] MEDS: LACT. RINGERS/OXYTOCIN 20UNITS 500 ML IV ONE ×2 (06:15→16:24)
[2025-01-08] MEDS ORDERED: ACETAMINOPHEN 325 MG TAB PO PRN (06:15)
[2025-01-08] MEDS ORDERED: DERMOPLAST 60ML BOTTLE TOP PRN (06:15)
[2025-01-08] MEDS ORDERED: WITCH HAZEL-GLYCERIN PAD TOP PRN (06:15)
[2025-01-08 07:19] LABS: Alanine Aminotransferase 12 U/L (7-40); Albumin 3.6 g/dL (3.2-4.8); Anion Gap 11 (5-15); Aspartate Aminotransferase 24 U/L (13-40); BUN/Creatinine Ratio 19.1 (10.0-20.0); Blood Urea Nitrogen 13 mg/dL (9-23); Chloride 104 mmol/L (98-107); Total Protein 6.5 g/dL (5.7-8.2); Uric Acid 7.1 mg/dL (3.1-7.8)
[2025-01-08 07:20] LABS: Alkaline Phosphatase 223 U/L (46-116); Bilirubin, Total 0.4 mg/dL (0.2-1.0); Calcium 8.5 mg/dL (8.7-10.4); Carbon Dioxide 17 mmol/L (20-31); Glucose 113 mg/dL (74-106); Potassium 3.3 mmol/L (3.5-5.1); Sodium 132 mmol/L (136-145)
[2025-01-08 07:22] LABS: Basophils # (auto) 0 10 ^3/uL (0-0.2); Eosinophils # (auto) 0 10 ^3/uL (0-0.8); Eosinophils % (auto) 0.1 % (0.0-7.0); Hemoglobin 9.3 g/dL (12.2-16.2); Platelet Count (auto) 263 10^3/uL (140-450)
[2025-01-08 07:24] LABS: Basophils % (auto) 0.2 % (0.0-2.0); Hematocrit 28.7 % (36.0-46.0); Lymphocytes # (auto) 0.8 10 ^3/uL (0.4-5.4); Lymphocytes % (auto) 6.3 % (10.0-50.0); Mean Corpuscular Hemoglobin 23.2 pg (28.0-32.0); Mean Corpuscular Hgb Conc. 32.3 g/dL (32.0-36.0); Mean Corpuscular Volume 71.8 fL (80.0-100.0); Monocytes # (auto) 0.6 10 ^3/uL (0-1.3); Monocytes % (auto) 5.2 % (0.0-12.0); Neutrophils # (auto) 10.8 10 ^3/uL (1.6-8.6); Neutrophils % (auto) 88.2 % (37.0-80.0); Red Cell Distribution Width 19.4 % (11.8-14.3); White Blood Cell 12.3 10^3/uL (4.4-10.8)
[2025-01-08 07:25] LABS: INR 0.89 (0.9-1.15); Partial Thromboplastin Time 31.6 SEC (24.5-34.5); Prothrombin Time 9.5 sec (9.3-11.8)
[2025-01-08] MEDS: IBUPROFEN 600 MG TAB PO PRN (07:46)
[2025-01-08] MEDS ORDERED: OXYTOCIN 10UNIT/ML 1ML VIAL IV ONE (08:35)
[2025-01-08 09:22] LABS: Rapid Influenza A Negative (Negative); Rapid Influenza B Negative (Negative)
[2025-01-08 09:23] LABS: COVID19 ANTIGEN SOFIA FIA NEGATIVE (NEGATIVE)
[2025-01-08 10:45] LABS: Protein, Urine 119.2 mg/dL (1-14); Urine Bacteria FEW /hpf (None Seen); Urine Blood 3+ /uL (Negative); Urine Clarity Turbid (Clear); Urine Color Light-Orange (Yellow); Urine Mucus FEW (None Seen); Urine Protein, UAD 1+ (Negative); Urine Specific Gravity 1.023 (1.001-1.035); Urine Squamous Epithelial Cell None Seen /hpf (<5); Urine Urobilinogen 2 mg/dL (Negative); Urine WBC 133 /HPF (0-5)
[2025-01-08 10:48] LABS: Cannabinoid Screen, Urine Pos (NEGATIVE); Creatinine, Urine 189.37 mg/dL (30.0-125.0); Urine Protein/Creatinine Ratio 0.63
[2025-01-08 10:49] LABS: Amphetamine Screen, Urine Pos (NEGATIVE); Barbiturate Scree,Urine Neg (NEGATIVE); Benzodiazephine Screen, Urine Neg (NEGATIVE); Cocaine Screen, Urine Neg (NEGATIVE); Opiate Scree,Urine Neg (NEGATIVE); Phencyclidine Screen, Urine Neg (NEGATIVE)
[2025-01-08] MEDS: ALBUTEROL SULF 2.5 MG/0.5ML(0.5%) NEB SOLN NEB PRN (11:17)
[2025-01-08] MEDS: ALBUTEROL SULF 2.5 MG/0.5ML(0.5%) NEB SOLN ONE (11:17)
[2025-01-08] MEDS: POTASSIUM CHL 20 Meq TABLET PO ONE (16:39)
[2025-01-08] MEDS ORDERED: FER325T PO (23:33)
[2025-01-08] MEDS ORDERED: IBU600T PO (23:33)
[2025-01-09] VITALS (10 sets, daily range): BP systolic 126–139; BP diastolic 66–78; PULSE 60–89; RESP 16–18; TEMP 98–98.6; O2SAT 93–100
--- NOTE | 2025-01-09 01:17 | DVHDS2 ---
Obstetrics Discharge Summary Obstetrics Discharge Summary Date of Admission: Jan 08, 2025 Date of Discharge: Jan 09, 2025 Reason For Admission: Others (BOA at home) Procedures: None Intrapartum Procedures: Spontaneous vaginal deliv Procedures: Hct/date: (01/09/25), Hgb/date: (01/09/25) Operative Complicat: None Discharge Diagnosis: Term -Delivered Discharge Information: Activity (as tolerated, no heavy lifting and nothing in the vagina for 6 weeks), Diet (Routine), Medications (Rx sent), Instructions (Routine), Discharge to (Home), Accompanied by (partner), Discarge date (01/09/25) Visit Coding OBGYN Date of Service: Jan 09, 2025 Billing Provider: AMINA BLANCO CNM TRACK REPAIR SUPERVISOR Common Visit Codes: [id number]/OBS DISCH DAY <30MIN AMINA BLANCO CNM Jan 09, 2025 01:17
--- NOTE | 2025-01-09 01:17 | DVHPN2 ---
Progress Note Date Seen: Jan 09, 2025 Subjective S: bleeding is less, eating food without issues, denies lightheaded/dizziness, pain well controlled with oral medications, no concerns with urinating, passing flatus, no BM yet, ambulating well. Denies GONSALES/vision changes/RUQ pain. vital signs Vital Sign Date Time Temp Pulse Resp B/P (MAP) Pulse Ox O2 Delivery O2 Flow Rate FiO2 01/08/25 22:39 98.1 73 16 133/81 (98) 99 98.1 01/08/25 20:00 Room Air* 0 21 Total Intake and Output 01/08/25 01/08/25 01/09/25 15:00 23:00 07:00 Output Total 1100 ml Balance -1100 ml medications Current Medications Medications Dose Ordered Sig/Cece Route Start Time Stop Time Status Last Admin Dose Admin Ethan Hernandez 1 pad PRN PRN TOP 01/08/25 06:15 Sodium Lauryl Sulfate 240 ml PRN PRN TOP 01/08/25 06:15 Benzocaine 1 applic PRN PRN TOP 01/08/25 06:15 Lidocaine HCl 20 ml ONCE PRN IJ 01/08/25 06:15 Ibuprofen 600 mg Q6HP PRN PO 01/08/25 06:15 01/08/25 21:25 600 MG Acetaminophen 650 mg Q6HPRN PRN PO 01/08/25 06:15 Albuterol 2.5 mg Q4HPRN PRN NEB 01/08/25 11:00 01/08/25 19:59 2.5 MG Objective O: VSS Chest: heart sounds normal and lung sounds clear bilaterally Abd: soft, non-tender, fundus at U/firm/midline, active bowel sounds, no rebound or guarding Perineum: intact, no erythema/edema noted Ext: Non-tender, No edema, 2+ BLE DTRs Lochia: minimal K+ 40 mEq PO x1 given, hypokalemia has resolved Laboratory Tests Test 01/08/25 06:45 01/08/25 08:45 01/08/25 09:56 01/09/25 06:54 Range/Units White Blood Count 12.3 H 7.6 # 4.4-10.8 10^3/uL Red Blood Count 4.00 3.67 L 4.0-5.20 10^6/uL Hemoglobin 9.3 L 8.5 L 12.2-16.2 g/dL Hematocrit 28.7 L 26.7 L 36.0-46.0 % Mean Corpuscular Volume 71.8 L 72.7 L 80.0-100.0 fL Mean Corpuscular Hemoglobin 23.2 L 23.2 L 28.0-32.0 pg Mean Corpuscular Hemoglobin Concent 32.3 31.9 L 32.0-36.0 g/dL Red Cell Distribution Width 19.4 H 19.3 H 11.8-14.3 % Platelet Count 263 235 140-450 10^3/uL Mean Platelet Volume 8.5 8.3 6.9-10.8 fL Neutrophils (%) (Auto) 88.2 H 70.2 37.0-80.0 % Lymphocytes (%) (Auto) 6.3 L 23.1 10.0-50.0 % Monocytes (%) (Auto) 5.2 5.6 0.0-12.0 % Eosinophils (%) (Auto) 0.1 0.9 0.0-7.0 % Basophils (%) (Auto) 0.2 0.2 0.0-2.0 % Neutrophils # (Auto) 10.8 H 5.3 1.6-8.6 10 ^3/uL Lymphocytes # (Auto) 0.8 1.8 0.4-5.4 10 ^3/uL Monocytes # (Auto) 0.6 0.4 0-1.3 10 ^3/uL Eosinophils # (Auto) 0 0.1 0-0.8 10 ^3/uL Basophils # (Auto) 0 0 0-0.2 10 ^3/uL Nucleated Red Blood Cells 0.0 0.1 % Prothrombin Time 9.5 9.3-11.8 sec Prothrombin Time INR 0.89 L 0.9-1.15 Activated Partial Thromboplast Time 31.6 24.5-34.5 SEC Sodium Level 132 L 140 # 136-145 mmol/L Potassium Level 3.3 L 4.4 3.5-5.1 mmol/L Chloride Level 104 112 H 98-107 mmol/L Carbon Dioxide Level 17 L 19 L 20-31 mmol/L Anion Gap 11 9 5-15 Blood Urea Nitrogen 13 9 9-23 mg/dL Creatinine 0.68 0.55 0.550-1.02 mg/dL Glomerular Filtration Rate Calc 115 121 >90 mL/min BUN/Creatinine Ratio 19.1 16.4 10.0-20.0 Serum Glucose 113 H 75 74-106 mg/dL Hemoglobin A1c 5.7 <5.7 % A1C Uric Acid 7.1 3.1-7.8 mg/dL Calcium Level 8.5 L 8.8 8.7-10.4 mg/dL Total Bilirubin 0.4 0.2 0.2-1.0 mg/dL Aspartate Amino Transferase (AST) 24 21 13-40 U/L Alanine Aminotransferase (ALT) 12 14 7-40 U/L Alkaline Phosphatase 223 H 175 H 46-116 U/L Total Protein 6.5 5.9 5.7-8.2 g/dL Albumin 3.6 3.3 3.2-4.8 g/dL Treponema pallidum Antibody Non-reactive Negative Hepatitis B Surface Antigen Negative Negative Hepatitis C Antibody Negative Negative HIV (1&2) Antibody Negative Negative Rubella Antibody Positive Influenza Type A Antigen Negative Negative Influenza Type B Antigen Negative Negative SARS-CoV-2 Antigen (Rapid) Negative NEGATIVE Urine Color Light-orange Yellow Urine Clarity Turbid H Clear Urine pH 6.0 5.0-9.0 Urine Specific [place] 1.023 1.001-1.035 Urine Protein 1+ H Negative Urine Ketones Negative Negative Urine Blood 3+ H Negative /uL Urine Nitrite Negative Negative Urine Bilirubin Negative Negative Urine Urobilinogen 2 H Negative mg/dL Urine Leukocyte Esterase 3+ Negative /uL Urine RBC 2872 0 - 4 /hpf Urine Microscopic WBC 133 H 0-5 /HPF Urine Squamous Epithelial Cells None seen <5 /hpf Urine Bacteria Few H None Seen /hpf Urine Mucus Few None Seen Urine Creatinine 189.37 H 30.0-125.0 mg/dL Urine Protein/Creatinine Ratio 0.63 Urine Glucose Normal Normal mg/dL Urine Total Protein 119.2 H 1-14 mg/dL Urine Opiates Screen Neg NEGATIVE Urine Fentanyl Screen Neg NEGATIVE Urine Barbiturates Screen Neg NEGATIVE Urine Phencyclidine Screen Neg NEGATIVE Urine Amphetamines Screen Pos NEGATIVE Urine Benzodiazepines Screen Neg NEGATIVE Urine Cocaine Screen Neg NEGATIVE Urine Cannabinoids Screen Pos NEGATIVE Chlamydia trachomatis (LOR[facility]) Pending Neisseria gonorrhoeae (LORA) Pending Vital Signs Date Time Temp Pulse Resp B/P (MAP) Pulse Ox O2 Delivery O2 Flow Rate FiO2 01/09/25 11:00 98.6 70 16 137/78 (97) 96 98.6 01/09/25 10:37 Room Air* 0 21 Problems(with codes): (1) Drug use during (2) Single liveborn , born outside hospital (3) Intact perineum Assessment/Plan A: 39yo now PPD#1 s/p Anemia Rh+ Rubella Immune P: Dr. Huntley consulted about BPs, normal BPs during serial BPs. Okay to D/C home today. Rx sent to pharmacy precautions and preeclampsia warning signs reviewed F/U with [facility] office in 2 weeks Plan discussed with: Patient Visit Coding OBGYN Date of Service: Jan 09, 2025 Billing Provider: AMINA BLANCO CNM BARREL DEDENTING MACHINE OPERATOR Common Visit Codes: [id number] INP/OBS CARE(HIGH) AMINA BLANCO CNM Jan 09, 2025 01:17
--- NOTE | 2025-01-09 04:38 | DVHINCON2 ---
Date of Service if different f: Jan 09, 2025 Time of Service: 04:18 Consult Consult Note PSYCHIATRY L&D NEW CONSULT HPI: 39 yo F pt with no PPH seen today as pt scored 12 on depression scale. Psychiatry consulted for safety evaluation and recommendations in context of current presentation Per pt, reports this is her [age] and gave ~ 24 hrs ago to a baby girl at home via uncomplicated vaginal. Pt did test + for meth/THC, baby currently at NICU for unclear reasons. Pt did have 'baby blues' s/p several pregnancies but never took any psychiatric meds. pt reports feeling tired, nervous/anxious s/p delivery/labor in addition to some financial strains and current housing/rent stress which may have caused mild elevation on scoring on PPDS. Pt is not experiencing any current feelings of depression or feelings to harm self, others, or baby. Over the duration of her , pt denied having any feelings of depression or persistent sadness although admits to freq thc and some meth use. Pt excited about her and looks forward to bonding with her once discharged from hospital. Pt denies depressed/sad mood, hopelessness, helplessness, loss of interest, decreased energy, poor sleep/appetite, excessive guilt, anhedonia, or amotivation. Also denies panic/anxiety symptoms, irritability/restlessness, paulette, or psychosis. Denies hx of manic, psychotic, or major depressive episodes. Pt currently does not have psychiatrist/therapist out in community. Never sought MH services in past. Currently not on any psychotropic agents. No prior psych med trials. Lives with 6 children/partner (baby letty), some support system noted. Unknown trauma hx. Unknown FH. No acute medical issues, NKDA Does not have hx of suicide attempts, SIB, or prior psych hospitalizations. Currently denies SI/HI. Denies history of violence, unprovoked aggression, impulsivity, emotional dysregulation, or assaultive behaviors. Does not have access to firearms. Identifies self/family as PPF. No safety concerns noted during encounter. MSE: General Appearance/Behavior: Alert and awake; appears stated age, fair grooming and hygiene; calm and cooperative, fair eye contact, no PMA/PMR, appears a bit tired Speech: coherent, rrr, talkative Thought Process: linear, logical, somewhat tangential at times Thought Content: Abnormal Thoughts and Perceptions: None Homicidality / Violent Thoughts: None Suicidality: none Hallucinations: None Delusions: denies paranoia, persecutory, or grandiose delusions Obsessions /compulsions : None Judgment and Insight: fair judgment with fair insight Mood & Affect: "good, little tired" with mood-congruent, appropriate Orientation: oriented to person, place, time Attention/Concentration: intact, follows conversation Memory: grossly intact Language: no unusual or inappropriate language Fund of Knowledge: appropriate Assessment: 39 yo F pt with no PPH seen today as pt scored 12 on depression scale Reports feeling tired, nervous/anxious s/p delivery/labor in addition to some financial strains and current housing/rent stress which may have caused mild elevation on scoring on PPDS. Nonetheless pt current denies SI/HI/AVH. Linear and goal directed in thought. Denies s/s of major depression, paulette or psychosis Presently, pt does not show any signs of immediate danger to self or others that would warrant a higher level of care. Thus, pt does not meet criteria for 5150 or inpatient psych admission as is not DTS, DTO or GD Plan: Does not warrant inpatient psychiatric hospitalization or 5150 hold at this time No acute safety concerns Pt can be safely discharged to current residence Does not warrant psychotropic med initiation at this time Supportive tx provided Education provided re: normal maternity blues vs post depression/psychosis Pt verbalized understanding and is receptive to above tx plan This case was discussed with L&D nurse/provider and all parties in agreement with above tx plan Rupert Obregon MD Plan discussed with: Patient RUPERT OBREGON MD Jan 09, 2025 04:38
[2025-01-09 07:11] LABS: Basophils # (auto) 0 10 ^3/uL (0-0.2); Basophils % (auto) 0.2 % (0.0-2.0); Eosinophils # (auto) 0.1 10 ^3/uL (0-0.8); Eosinophils % (auto) 0.9 % (0.0-7.0); Hematocrit 26.7 % (36.0-46.0); Hemoglobin 8.5 g/dL (12.2-16.2); Lymphocytes # (auto) 1.8 10 ^3/uL (0.4-5.4); Lymphocytes % (auto) 23.1 % (10.0-50.0); Mean Corpuscular Hemoglobin 23.2 pg (28.0-32.0); Mean Corpuscular Hgb Conc. 31.9 g/dL (32.0-36.0); Mean Corpuscular Volume 72.7 fL (80.0-100.0); Monocytes # (auto) 0.4 10 ^3/uL (0-1.3); Monocytes % (auto) 5.6 % (0.0-12.0); Neutrophils # (auto) 5.3 10 ^3/uL (1.6-8.6); Neutrophils % (auto) 70.2 % (37.0-80.0); Nucleated Red Blood Cells % 0.1 %; Platelet Count (auto) 235 10^3/uL (140-450); Red Blood Cells 3.67 10^6/uL (4.0-5.20); Red Cell Distribution Width 19.3 % (11.8-14.3); White Blood Cell 7.6 10^3/uL (4.4-10.8)
[2025-01-09 07:33] LABS: Alanine Aminotransferase 14 U/L (7-40); Albumin 3.3 g/dL (3.2-4.8); Anion Gap 9 (5-15); Aspartate Aminotransferase 21 U/L (13-40); BUN/Creatinine Ratio 16.4 (10.0-20.0); Calcium 8.8 mg/dL (8.7-10.4); Glucose 75 mg/dL (74-106); Potassium 4.4 mmol/L (3.5-5.1); Sodium 140 mmol/L (136-145); Total Protein 5.9 g/dL (5.7-8.2)
[2025-01-09 07:35] LABS: Alkaline Phosphatase 175 U/L (46-116); Bilirubin, Total 0.2 mg/dL (0.2-1.0); Blood Urea Nitrogen 9 mg/dL (9-23); Carbon Dioxide 19 mmol/L (20-31); Chloride 112 mmol/L (98-107)
[2025-01-09] MEDS: TETANUS-DIPTH-ACEL PERTUSSIS 0.5ML SYR Tdap IM ONE (10:21)
[2025-01-14 13:07] LABS: Chlamydia Trachomatis, NAA Negative (Negative); Neisseria gonorrhoeae, NAA Negative (Negative)
== END 2025-01-09 16:48 | disposition home or self-care (01) | DRG 561 ==
LOC: LDRP 05:47
PROVIDERS: ADMIT Obstetrics & Gynecology; ATTEND Obstetrics & Gynecology
DX: O99.345 Other mental disorders complicating the puerperium (principal); O99.325 Drug use complicating the puerperium; F53.0 Postpartum depression; O90.81 Anemia of the puerperium; J45.909 Unspecified asthma, uncomplicated; Z79.899 Other long term (current) drug therapy; F12.90 Cannabis use, unspecified, uncomplicated
CPT/HCPCS: 36415; 80053; 80307; 81001; 81002; 82570; 83036; 84156; 84550; 85025; 85610; 85730; 86703; 86762; 86780; 86803; 86850; 86900; 86901; 87340; 87426; 87804; 90715; 94640; 94760; 96365; 96366; 96372; G0378